=== PATIENT | female | born 1985 | race Two or more races ===

== ENCOUNTER 2018-12-21 14:37 | Emergency (ER) | payer OTHER ==
[~2018-12-21] VITALS: Ht 167.6 cm; Wt 82.6 kg
== END 2018-12-21 15:37 | disposition home or self-care (01) ==
LOC: ER 14:37
DX: R07.89 Other chest pain (principal)

== ENCOUNTER 2020-09-20 10:47 | Emergency (ER) | payer OTHER ==
[~2020-09-20] VITALS: Ht 167.6 cm; Wt 82.1 kg
[2020-09-20] MEDS ORDERED: INTESTINEX680 M1 PO (16:28)
[2020-09-20] MEDS ORDERED: BACTRIM DS TAB1 EACH PO (16:28)
== END 2020-09-20 16:40 | disposition home or self-care (01) ==
LOC: ER 10:47
DX: N39.0 Urinary tract infection, site not specified (principal); N91.0 Primary amenorrhea